=== PATIENT | female | born 1995 | race American Indian/Alaskan Native ===

== ENCOUNTER 2020-03-02 12:17 | Inpatient (IN) | payer OTHER, MEDICAID ==
[2020-03-02] MEDS ORDERED: PROMETHAZINE 25 MG RECT SUPP PR PRN (13:09)
[2020-03-02] MEDS ORDERED: ePHEDrine SULFATE 50 MG/1 ML INJ IV PRN (13:09)
[2020-03-02] MEDS ORDERED: NALOXONE 0.4 MG/1 ML INJ IV PRN (13:09)
[2020-03-02] MEDS ORDERED: NalbUPHINE 10 MG/1 ML INJ IV PRN (13:09)
[2020-03-02] MEDS ORDERED: ONDANSETRON 4 MG/2 ML INJ IV PRN (13:09)
[2020-03-02] MEDS ORDERED: fentaNYL 100 MCG/2 ML INJ IV PRN (13:09)
[2020-03-02] MEDS ORDERED: BUTORPHANOL 2 MG/1 ML INJ IV PRN ×2 (13:09)
[2020-03-02] MEDS ORDERED: MINERAL OIL 30 ML ORAL LIQD PO PRN (13:09)
[2020-03-02] MEDS ORDERED: TERBUTALINE 1 MG/1 ML INJ SUB-Q PRN (13:09)
[2020-03-02] MEDS ORDERED: TERBUTALINE 1 MG/1 ML INJ IVP PRN (13:09)
[2020-03-02] MEDS ORDERED: LACTATED RINGERS 1,000 ML ONE (13:09)
--- NOTE | 2020-03-02 13:21 | History and Physical Report ---
History of Present Illness Date of examination: 03/02/20 Date of admission: 03/02/20 12:17 Chief complaint: Patient here complaining of leaking History of present illness: This is a 24 yo EDC 03/15 at 39 weeks here for leaking. She is patient of [facility] with care since 26 week late due to insurance issues. Past History Past Medical History: no pertinent history Past Surgical History: no surgical history Family/Genetic History: none Social history: single. denies: smoking, alcohol abuse, prescription drug abuse - Obstetrical History Expected Date of Delivery: 03/15/20 Actual Gestation: 38 Week(s) 1 Day(s) : 2 Para: 1 Hx # Term Pregnancies: 0 Number of Pregnancies: 0 Spontaneous Abortions: 0 Induced : 0 Number of Living Children: 1 Medications and Allergies Active Meds: Active Medications Butorphanol Tartrate (Stadol) 1 mg IV Q2H PRN PRN Reason: Labor Pain Butorphanol Tartrate (Stadol) 2 mg IV Q2H PRN PRN Reason: Pain , Severe (7-10) Ephedrine Sulfate (Ephedrine Sulfate) 10 mg IV Q2M PRN PRN Reason: Hypotension Fentanyl (Sublimaze) 100 mcg IV Q2H PRN PRN Reason: Labor Pain Oxytocin/Sodium Chloride (Pitocin/Ns 20 Unit/1000ml Drip) 20 units in 1,000 mls @ 125 mls/hr IV DIRECT ALBERT Oxytocin/Sodium Chloride (Pitocin/Ns 30 Unit/500ml) 30 units in 500 mls @ 1 mls/hr IV TITR ALBERT; Protocol Oxytocin/Sodium Chloride (Pitocin/Ns 30 Unit/500ml) 30 units in 500 mls @ 0 mls/hr IV TITR ALBERT; Protocol Lactated Ringer's (Lactated Ringers) 1,000 mls @ 125 mls/hr IV DIRECT ALBERT Ampicillin Sodium (Ampicillin/Ns 2 Gm/100 Ml) 2 gm in 100 mls @ 100 mls/hr IV ONCE ONE; Protocol Stop: 03/02/20 14:08 Lidocaine (Xylocaine 2%) 20 ml INFILTRATI ONCE ONE Stop: 03/02/20 13:10 Mineral Oil (Mineral Oil) 30 ml PO QHS PRN PRN Reason: Constipation Nalbuphine HCl (Nalbuphine) 10 mg IV Q2H PRN PRN Reason: Pain, Moderate (4-6) Naloxone HCl (Naloxone) 0.1 mg IV Q2MIN PRN PRN Reason: Res Rate </= 8 or 02 SAT < 92% Ondansetron HCl (Zofran) 4 mg IV Q8H PRN PRN Reason: Nausea And Vomiting Promethazine HCl (Phenergan) 25 mg TX Q6H PRN PRN Reason: N/V if unable to take po Terbutaline Sulfate (Brethine) 0.25 mg SUB-Q ONCE PRN PRN Reason: Hyperstimulation/Hypertonicity Terbutaline Sulfate (Brethine) 0.25 mg IVP ONCE PRN PRN Reason: Hyperstimulation/Hypertonicity Review of Systems All systems: negative - Vital Signs Vital signs: Vital Signs Pulse BP 61 130/76 03/02/20 13:12 03/02/20 13:12 Temp Pulse Resp BP Pulse Ox 61 130/76 03/02/20 13:12 03/02/20 13:12 - Physical Exam Breasts: Positive: normal Cardiovascular: Regular rate, Normal S1 Lungs: Positive: Clear to auscultation, Normal air movement Abdomen: Positive: normal appearance, soft, normal bowel sounds. Negative: distention, tenderness, guarding Genitourinary (Female): Positive: normal external genitalia, normal perenium Vagina: Positive: normal moisture Uterus: Positive: normal size, normal contour Anus/Rectum: Positive: normal perianal skin Extremities: Positive: normal Deep Tendon Reflex Grade: Normal +2 - Obstetrical FHR: category 1 Cervical Dilatation: 1 Results All other labs normal. Assessment and Plan A/P IUP 38 weeks GBS unknown PROM admission ivf labs offer epidrural amp for GBSunknown augemtin labor with pitocin expect vaginal delivery
[2020-03-02] MEDS ORDERED: AMPICILLIN/NS 2 GM/100 ML 2 GM/100 ML BAG IV ONE (14:00)
[2020-03-02] MEDS ORDERED: OXYTOCIN DRIP 30 UNITS/500 ML BAG IV SCH ×2 (14:00)
[2020-03-02] MEDS ORDERED: LIDOCAINE (2%) 20 MG/1 ML VIAL 20 ML MDV INFILTRATI ONE (14:00)
[2020-03-02 14:30] LABS: Hematocrit 37.3 % (30.3-42.9); Hemoglobin 12.6 gm/dl (10.1-14.3); Mean Corpuscular HGB Conc 34 % (30-34); Mean Corpuscular Volume 92 fl (79-97); Platelet Count 193 K/mm3 (140-440); Red Blood Count 4.07 M/mm3 (3.65-5.03); Red Cell Distribution Width 13.4 % (13.2-15.2)
--- NOTE | 2020-03-02 16:12 | Ultrasound Report ---
ULTRASOUND OBSTETRIC Indication: well being Findings: There is a single intrauterine . BPD = 9.1 cm = 36 weeks, 6 day(s). Head circumference = 32.9 cm = 37 weeks, 3 day(s). Abdominal circumference = 32 cm = 35 weeks, 6 day(s). Femur length = 6.9 cm = 35 weeks, 1 day(s). Overall estimated sonographic age = 36 weeks, 2 day(s). heart rate is 121 beats per minute. Estimated weight is 2820 grams position is cephalic. movement is present. Placenta is right lateral and grade 2 . Amniotic fluid volume is decreased, with DERIAN measuring 3.4 cm.. Maternal adnexa appear normal. Impression: 1. Single living intrauterine with estimated sonographic age of 36 weeks, 2 day(s). 2. Low amniotic fluid index of 3.4 cm. Signer Name: Tico Rivers MD Signed: 03/02/2020 4:08 PM Workstation Name: [id number]
[2020-03-02] MEDS: miSOPROStol 25 MCG TAB PO PRN ×2 (16:14→20:17)
[2020-03-02] MEDS: LACTATED RINGERS 1,000 ML IV SCH ×4 (16:15→23:10)
[2020-03-02] MEDS ORDERED: DEXMEDETOMIDINE 200 MCG/2 ML VIAL IV ONE (21:22)
--- NOTE | 2020-03-02 21:39 | Anesthesia Consultation ---
Anesthesia Consult and Med Hx Date of service: 03/02/20 - Airway Anesthetic Teeth Evaluation: Good ROM Head & Neck: Adequate Mental/Hyoid Distance: Adequate Mallampati Class: Class II Intubation Access Assessment: Good - Pulmonary Exam CTA: Yes - Cardiac Exam Cardiac Exam: RRR - Pre-Operative Health Status ASA Pre-Surgery Classification: ASA2, Emergency Proposed Anesthetic Plan: Epidural - Pulmonary Hx Asthma: No COPD: No Hx Pneumonia: No - Cardiovascular System Hx Hypertension: No - Central Nervous System Hx Seizures: No Hx Psychiatric Problems: No - Endocrine Hx Renal Disease: No Hx End Stage Renal Disease: No Hx Hypothyroidism: No Hx Hyperthyroidism: No - Hematic Hx Anemia: No Hx Sickle Cell Disease: No - Other Systems Hx Alcohol Use: No
--- NOTE | 2020-03-02 21:40 | Progress Note ---
Labor Epidural - Labor Epidural Start Time: 21:25 Stop Time: 21:28 Performed by:: PATI GARZA Procedure: Patient is requesting a laboring epidural for laboring pain. Patient IDed, H&P reviewed, all questions and concerns were answered, and consent was signed. Timeout was performed at bedside. Patient in sitting position. Sterile prep and drape was performed. 3 ml of 1% lidocaine skin wheal at L 3- L 3. 18-gauge Touhy epidural needle was advanced to loss of resistance with air technique. Negative CSF negative blood. Epidural catheter advanced to 15 centimeters. Negative aspiration negative test dose. Sterile dressing applied. Patient tolerated procedure.
[2020-03-02] MEDS ORDERED: fentaNYL-BUPIV 2 MCG/ML-0.125% 200 MCG/100 ML BAG EPIDURAL SCH (22:00)
[2020-03-03] MEDS: OXYTOCIN 20 UNIT/1000ML DRIP 20 UNITS/1,000 ML BAG IV SCH ×2 (02:48→03:48)
[2020-03-03] MEDS ORDERED: miSOPROStol 200 MCG TAB PR ONE (02:56)
[2020-03-03] MEDS ORDERED: miSOPROStol 200 MCG TAB ONE (02:56)
--- NOTE | 2020-03-03 03:16 | Procedure Note ---
OB Delivery Note - Delivery Date of Delivery: 03/03/20 Surgeon: VALORIE MCKEON Estimated blood loss: 300cc - Vaginal Delivery presentation: vertex Delivery position: OA Intrapartum events: PROM->1hr before delivery Delivery induction: misoprostol Delivery monitor: external FHT, external uterine Route of delivery: Delivery placenta: spontaneous Delivery cord: nuchal cord Delivery laceration: none Anesthesia: epidural Delivery comments: Viable male delivered over intact perineum with loose nuchal easily reduced on perineum. Weight 6 pounds 1 ounce. Apgars8,9. Placenta delivered spontaneously and intact with 3vc. No lacerations. Pt tolerated procedure well. - Infant A at 1 minute: 8 at 5 minutes: 9 Infant Gender: Male
[2020-03-03] MEDS ORDERED: MAGNESIUM HYDROXIDE (MOM) ORAL LIQD UDC PO PRN (06:32)
[2020-03-03] MEDS ORDERED: PROMETHAZINE 25 MG TAB PO PRN (06:32)
[2020-03-03] MEDS ORDERED: diphenhydrAMINE 25 MG CAP PO PRN (06:32)
[2020-03-03] MEDS ORDERED: HYDROcodone/ACETAMINOPHEN 5-325 MG TAB PO PRN (06:32)
[2020-03-03] MEDS ORDERED: WITCH HAZEL/ GLYCERIN PAD TP PRN (06:32)
[2020-03-03] MEDS ORDERED: ACETAMINOPHEN 325 MG TAB PO PRN (06:32)
[2020-03-03] MEDS ORDERED: ONDANSETRON 4 MG/2 ML INJ IV PRN (06:32)
[2020-03-03] MEDS ORDERED: LANOLIN/ZINC/DIMETHICONE (LANSINOH) 7 GM TP PRN (06:32)
[2020-03-03] MEDS ORDERED: KETOROLAC 30 MG/1 ML INJ IV PRN (06:32)
[2020-03-03] MEDS ORDERED: OXYTOCIN 20 UNIT/1000ML DRIP 20 UNITS/1,000 ML BAG IV SCH (06:32)
[2020-03-03] MEDS ORDERED: PROMETHAZINE 25 MG RECT SUPP PR PRN (06:32)
[2020-03-03] MEDS: IBUPROFEN 600 MG TAB PO SCH ×2 (09:50→17:52)
[2020-03-03] MEDS: DOCUSATE SODIUM 100 MG CAP PO SCH ×2 (09:50→22:14)
[2020-03-03] MEDS: PRENATAL VIT27-FE FUMARATE-FOLIC ACID VIT TAB PO SCH (09:50)
--- NOTE | 2020-03-03 16:01 | Post Anesthesia Evaluation ---
- Post Anesthesia Evaluation Patient Participated: Yes Airway Patent: Yes Stable Respiratory Function: Yes Nausea/Vomiting: No Temp > 96.8F: Yes Pain Manageable: Yes Adequeate Hydration: Yes Anesthesia Complications: No Block Receding Appropriately: Yes Patient on Ventilator: No
[2020-03-03 16:46] LABS: Hematocrit 31.5 % (30.3-42.9); Hemoglobin 10.9 gm/dl (10.1-14.3)
[2020-03-04] MEDS ORDERED: TETANUS,DIPH,PERTUSS(ACELL) VACCINE 0.5 ML SYRINGE IM ONE (06:00)
[2020-03-04] MEDS: IBUPROFEN 600 MG TAB PO SCH ×2 (06:17→12:10)
[2020-03-04] MEDS: PRENATAL VIT27-FE FUMARATE-FOLIC ACID VIT TAB PO SCH (12:10)
[2020-03-04] MEDS: DOCUSATE SODIUM 100 MG CAP PO SCH (12:10)
--- NOTE | 2020-03-04 12:11 | Progress Note ---
Assessment and Plan PPD 1 s/p . Doing well. Plan for discharge on today. Subjective - Subjective Date of service: 03/04/20 Interval history: PPD 1 s/p . Patient reports: appetite normal, voiding normally, pain well controlled, ambulating normally [place]: doing well Objective - Vital Signs Latest vital signs: Vital Signs Temp Pulse Resp BP Pulse Ox 03/04/20 07:46 98.2 F 67 16 136/73 98 03/03/20 23:40 98.1 F 64 20 133/68 96 03/03/20 16:03 97.9 F 72 20 141/83 100 Intake and Output 03/03/20 03/04/20 03/04/20 22:59 06:59 14:59 Intake Total 240 120 240 Balance 240 120 240 Intake: Oral 240 120 240 Other: Total, Intake Amount 240 120 240 # Voids Void 1 1 1 - Exam Breasts: Present: deferred Cardiovascular: Present: Regular rate, Normal S1, Normal S2 Lungs: Present: Clear to auscultation, Normal air movement Abdomen: Present: normal appearance, soft, normal bowel sounds Vulva: both: normal Uterus: Present: normal, firm Extremities: Present: normal Deep Tendon Reflex Grade: Normal +2
--- NOTE | 2020-03-04 12:13 | Discharge Summary ---
Providers - Providers Date of Admission: 03/02/20 12:17 Date of discharge: 03/04/20 Attending physician: ALEK GRAF MD Primary care physician: REAL TIME ANALYST Hospitalization Reason for admission: induction of labor, rupture of membranes Delivery: Episiotomy: none Laceration: none Other procedures: none complications: none Discharge diagnosis: IUP at term delivered [place] baby: male Hospital course: unremarkable Condition at discharge: Good Disposition: DC-01 TO HOME OR SELFCARE Plan - Discharge Medications Prescriptions: Ibuprofen [Motrin] 800 mg PO Q8HR PRN #40 tablet PRN Reason: Pain, Moderate (4-6) HYDROcodone/APAP 5-325 [[place] 5/325] 1 each PO Q6HR PRN #15 tablet PRN Reason: Pain - Provider Discharge Summary Additional instructions: [] Smoking cessation referral if applicable(refer to patient education folder for contact #) [] Refer to [facility]'s [facility] Booklet Call your doctor immediately for: * Fever > 100.5 * Heavy vaginal bleeding ( >1 pad per hour) * Severe persistent headache * Shortness of breath * Reddened, hot, painful area to leg or breast * Drainage or odor from incision. * Keep incision clean and dry at all times and follow doctor's instructions regarding bathing/showering - Follow up plan Follow up: PRIMARY CAREMD [Primary Care Provider] - 7 Days
[2020-03-04 14:57] VITALS: BP 148/87
== END 2020-03-04 14:50 | disposition home or self-care (01) | DRG 807 ==
LOC: LD 12:17 → OB 03-03 05:30
PROVIDERS: ADMIT Obstetrics & Gynecology; ATTEND Obstetrics & Gynecology
PROC: 10E0XZZ Delivery of Products of Conception, External Approach (ICD-10-PCS; principal; 2020-03-03)
DX: O80 Encounter for full-term uncomplicated delivery (principal); Z37.0 Single live birth; Z3A.38 38 weeks gestation of pregnancy
CPT/HCPCS: 36415; 76816; 85014; 85018; 85027; 86850; 86900; 86901; 90715; G0378; J2590; J3490; J7120

== ENCOUNTER 2021-06-10 09:37 | Inpatient (IN) | payer OTHER, MEDICAID ==
[2021-06-10] MEDS ORDERED: OXYTOCIN 10 UNIT/1 ML INJ IM PRN (11:52)
[2021-06-10] MEDS ORDERED: LIDOCAINE (2%) 20 MG/1 ML VIAL 20 ML MDV INFILTRATI NR (11:52)
[2021-06-10] MEDS ORDERED: TERBUTALINE 1 MG/1 ML INJ SUB-Q PRN (11:52)
[2021-06-10] MEDS ORDERED: LOPERAMIDE 2 MG CAP PO PRN ×2 (11:52→12:38)
[2021-06-10] MEDS ORDERED: CARBOPROST TROMETHAMINE 250 MCG/1 ML INJ IM PRN ×2 (12:00→12:38)
[2021-06-10] MEDS ORDERED: OXYTOCIN DRIP 30 UNITS/500 ML BAG IV SCH ×2 (12:00)
[2021-06-10] MEDS ORDERED: METHYLERGONOVINE MALEATE 0.2 MG/ML VIAL IM PRN ×2 (12:00→12:38)
[2021-06-10] MEDS ORDERED: ePHEDrine SULFATE 50 MG/1 ML INJ IV PRN ×3 (12:00→17:26)
[2021-06-10] MEDS ORDERED: miSOPROStol 200 MCG TAB PR PRN (12:30)
[2021-06-10] MEDS ORDERED: BUTORPHANOL 2 MG/1 ML INJ IV PRN ×3 (12:38→17:00)
--- NOTE | 2021-06-10 12:57 | History and Physical Report ---
History of Present Illness Date of examination: 06/10/21 Date of admission: 06/10/2021 Chief complaint: My water broke between 2 and 3 this morning History of present illness: Late entry to care at 31 2/7 Weeks; course complicated by Anemia and Vitamin D Deficiency. Past History Past Medical History: no pertinent history Past Surgical History: other (Facial SX (2010)) Family/Genetic History: none Social history: no significant social history, single - Obstetrical History Expected Date of Delivery: 06/16/21 Actual Gestation: 39 Week(s) 1 Day(s) : 3 Para: 2 Hx # Term Pregnancies: 2 Number of Living Children: 2 #1 Infant Gender: Female year: 2,[birth year] Birthweight: 2.637 kg Method of Delivery: Vaginal Gestational age at delivery: 39 Complications: none #2 Gender: Male year: 2,020 Birthweight: 2.75 kg Method of Delivery: Vaginal Gestational age at delivery: 39 Complications: none Medications and Allergies Allergies Allergy/AdvReac Type Severity Reaction Status Date / Time No Known Allergies Allergy Unverified 03/02/20 15:41 Home Medications Medication Instructions Recorded Confirmed Last Taken Type HYDROcodone/APAP 5-325 [[place] 1 each PO Q6HR PRN #15 tablet 03/03/20 Unknown Rx 5/325] Ibuprofen [Motrin] 800 mg PO Q8HR PRN #40 tablet 03/03/20 Unknown Rx Acetaminophen [Acetaminophen 8 650 mg PO Q8H PRN #20 tablet.er 07/17/20 Unknown Rx Hour] Azithromycin [Zithromax Z-CARLITO] 250 mg PO DAILY #6 tablet 07/17/20 Unknown Rx Benzonatate [Tessalon Perles] 100 mg PO Q8HR PRN #12 capsule 07/17/20 Unknown Rx Sulfamethoxazole/Trimethoprim 1 each PO BID #14 tablet 07/17/20 Unknown Rx [Bactrim DS TAB] Active Meds: Active Medications Butorphanol Tartrate (Butorphanol 2 Mg/1 Ml Inj) 2 mg IV Q2H PRN PRN Reason: Pain , Severe (7-10) Carboprost Tromethamine (Carboprost Tromethamine 250 Mcg/1 Ml Inj) 250 mcg IM ONCE PRN PRN Reason: Uterine Bleeding Ephedrine Sulfate (Ephedrine Sulfate 50 Mg/1 Ml Inj) 10 mg IV Q2M PRN PRN Reason: Hypotension Oxytocin/Sodium Chloride (Pitocin/Ns 30 Unit/500ml) 30 units in 500 mls @ 2 mls/hr IV TITR ALBERT; Protocol Lactated Ringer's (Lactated Ringers) 1,000 mls @ 125 mls/hr IV DIRECT ALBERT Oxytocin/Sodium Chloride (Pitocin/Ns 30 Unit/500ml) 30 units in 500 mls @ 40 mls/hr IV TITR ALBERT; Protocol Lidocaine (Lidocaine (2%) 20 Mg/1 Ml Vial 20 Ml Mdv) 20 ml INFILTRATI ONCE NR Stop: 06/10/21 16:00 Loperamide HCl (Loperamide 2 Mg Cap) 2 mg PO ONCE PRN PRN Reason: give with Hemabate Loperamide HCl (Loperamide 2 Mg Cap) 2 mg PO ONCE PRN PRN Reason: give with Hemabate Methylergonovine Maleate (Methylergonovine Maleate 0.2 Mg/Ml Vial) 0.2 mg IM ONCE PRN PRN Reason: Uterine Bleeding Methylergonovine Maleate (Methylergonovine Maleate 0.2 Mg/Ml Vial) 0.2 mg IM ONCE PRN PRN Reason: Uterine Bleeding Mineral Oil (Mineral Oil 30 Ml Oral Liqd) 30 ml PO QHS PRN PRN Reason: Constipation Misoprostol (Misoprostol 200 Mcg Tab) 800 mcg TN ONCE PRN PRN Reason: Uterine Bleeding Stop: 06/11/21 12:29 Oxytocin (Oxytocin 10 Unit/1 Ml Inj) 10 unit IM ONCE PRN PRN Reason: Uterine Bleeding Terbutaline Sulfate (Terbutaline 1 Mg/1 Ml Inj) 0.25 mg SUB-Q ONCE PRN PRN Reason: Hyperstimulation/Hypertonicity Stop: 06/11/21 11:51 Review of Systems All systems: negative - Vital Signs Vital signs: Vital Signs Pulse Pulse Ox 91 H 99 06/10/21 10:17 06/10/21 10:17 Temp Pulse Resp BP Pulse Ox 98.2 F 62 16 121/68 100 06/10/21 10:20 06/10/21 12:37 06/10/21 10:20 06/10/21 12:35 06/10/21 12:37 - Physical Exam Breasts: Positive: normal Cardiovascular: Regular rate Lungs: Positive: Clear to auscultation, Normal air movement Abdomen: Positive: normal appearance, soft, normal bowel sounds Genitourinary (Female): Positive: normal external genitalia, normal perenium Uterus: Positive: enlarged Anus/Rectum: Positive: normal perianal skin - Obstetrical FHR: category 1 Uterine Contraction Monitor Mode: External Cervical Dilatation: 2 (scant amount of clear fluid observed) Cervical Effacement Percentage: 70 station: -3 Uterine Contraction Pattern: Irregular Uterine Tone Measurement Phase: Resting Uterine Contraction Intensity: Mild Results Abnormal lab results 06/10/21 Range/Units Unknown Membranes Rupture Positive A (Negative) All other labs normal. Assessment and Plan A: IUP @ 39 1/7 Weeks Category I Tracing PROM GBS Negative P: Admit to L&D Per Routine Orders Pitocin Induction
[2021-06-10 13:07] LABS: Hematocrit 30.8 % (30.3-42.9); Hemoglobin 10.3 gm/dl (10.1-14.3); Mean Corpuscular HGB Conc 33 % (30-34); Mean Corpuscular Volume 85 fl (79-97); Platelet Count 197 K/mm3 (140-440); Red Blood Count 3.64 M/mm3 (3.65-5.03); Red Cell Distribution Width 14.3 % (13.2-15.2)
[2021-06-10] MEDS: LACTATED RINGERS 1,000 ML IV SCH ×4 (14:08→20:52)
[2021-06-10] MEDS ORDERED: ACETAMINOPHEN 325 MG TAB PO PRN ×2 (16:03→17:00)
[2021-06-10] MEDS ORDERED: fentaNYL 100 MCG/2 ML INJ IV PRN (17:00)
[2021-06-10] MEDS ORDERED: NALOXONE 2 MG/2 ML INJ IV PRN (17:26)
--- NOTE | 2021-06-10 17:26 | Anesthesia Consultation ---
Anesthesia Consult and Med Hx Date of service: 06/10/21 - Airway Anesthetic Teeth Evaluation: Good ROM Head & Neck: Adequate Mental/Hyoid Distance: Adequate Mallampati Class: Class II Intubation Access Assessment: Probably Good - Pulmonary Exam CTA: Yes - Cardiac Exam Cardiac Exam: RRR - Pre-Operative Health Status ASA Pre-Surgery Classification: ASA2 Proposed Anesthetic Plan: Epidural - Pulmonary Hx Asthma: No COPD: No Hx Pneumonia: No - Cardiovascular System Hx Hypertension: No - Central Nervous System Hx Seizures: No Hx Psychiatric Problems: No - Endocrine Hx Renal Disease: No Hx End Stage Renal Disease: No Hx Hypothyroidism: No Hx Hyperthyroidism: No - Hematic Hx Anemia: No Hx Sickle Cell Disease: No - Other Systems Hx Alcohol Use: No
[2021-06-10] MEDS ORDERED: fentaNYL-BUPIV 2 MCG/ML-0.125% 200 MCG/100 ML BAG EPIDURAL SCH (18:00)
--- NOTE | 2021-06-10 18:13 | Progress Note ---
Labor Epidural - Labor Epidural Start Time: 18:03 Stop Time: 18:06 Performed by:: ADAM WALLACE Procedure: Patient is requesting epidural for labor pain. H&P, and labs reviewed. Procedure explained, questions answered, consent obtained. Patient in sitting position with blood pressure cuff and pulse ox on and working. Timeout performed immediately before start of procedure. Sterile chlorahexadine 0.5% prep/drape. 3 mL 1% lidocaine skin wheal at L[3]-L[4]. 18-gauge ConvertMediatead epidural needle advanced to [id number] with saline at 5 cm. 27-gauge spinal needle advanced until clear, free-flowing CSF. Intrathecal dexmedetomidine [5] mcg administered and needle removed. Epidural catheter advanced to 10 cm, negative aspiration for blood and csf, negative test dose 3 ml 1.5% lidocaine with epinephrine. Sterile steri-strips and tegaderm applied, followed by tape reinforcement. Patient tolerated procedure well.
[2021-06-10] MEDS ORDERED: MINERAL OIL 30 ML ORAL LIQD PO PRN (22:00)
[2021-06-11] MEDS ORDERED: PROMETHAZINE 25 MG RECT SUPP PR PRN (00:24)
[2021-06-11] MEDS ORDERED: PROMETHAZINE 25 MG TAB PO PRN (00:24)
[2021-06-11] MEDS ORDERED: WITCH HAZEL/ GLYCERIN PAD TP PRN (00:24)
[2021-06-11] MEDS ORDERED: LANOLIN/ZINC/DIMETHICONE (LANSINOH) 7 GM TP PRN (00:24)
[2021-06-11] MEDS ORDERED: MAGNESIUM HYDROXIDE (MOM) ORAL LIQD UDC PO PRN (00:24)
[2021-06-11] MEDS ORDERED: ONDANSETRON 4 MG/2 ML INJ IV PRN (00:24)
[2021-06-11] MEDS ORDERED: diphenhydrAMINE 25 MG CAP PO PRN (00:24)
[2021-06-11] MEDS ORDERED: ACETAMINOPHEN 325 MG TAB PO PRN (00:24)
--- NOTE | 2021-06-11 00:32 | Procedure Note ---
OB Delivery Note - Delivery Date of Delivery: 06/11/21 Surgeon: NELI MCNAMARA JR Estimated blood loss: 100cc - Vaginal Delivery presentation: vertex Delivery position: OA Intrapartum events: meconium (terminal) Delivery induction: oxytocin Delivery augmentation: pitocin Delivery monitor: external FHT, external uterine Route of delivery: vacuum extraction Indicators for instrumentation: nonreassuring FHR tracing Delivery placenta: spontaneous Episiotomy: none Delivery laceration: 1st degree (periclitoral) Delivery repair: vicryl Anesthesia: epidural Delivery comments: Status post vacuum-assisted vaginal delivery of male at 2356 indicated for nonreassuring heart tones. Weight 3380g. Height 20 inches. Apgars 8/9. Spontaneous delivery of placenta. Fundus firm below the umbilicus after Methergine x1. First-degree periclitoral laceration rendered hemostatic with 3- 0 Vicryl. - Infant A at 1 minute: 8 at 5 minutes: 9 Infant Gender: Male
[2021-06-11] MEDS: IBUPROFEN 600 MG TAB PO SCH ×2 (02:00→18:47)
[2021-06-11] MEDS: oxyCODONE /ACETAMINOPHEN 5-325MG TAB PO PRN (14:26)
[2021-06-11 18:51] LABS: Hematocrit 25.9 % (30.3-42.9); Hemoglobin 8.7 gm/dl (10.1-14.3)
--- NOTE | 2021-06-11 20:01 | Post Anesthesia Evaluation ---
- Post Anesthesia Evaluation Patient Participated: Yes Airway Patent: Yes Stable Respiratory Function: Yes Nausea/Vomiting: No Temp > 96.8F: Yes Pain Manageable: Yes Adequeate Hydration: Yes Anesthesia Complications: No Block Receding Appropriately: Yes
[2021-06-12] MEDS: IBUPROFEN 600 MG TAB PO SCH ×2 (01:56→12:13)
[2021-06-12] MEDS: oxyCODONE /ACETAMINOPHEN 5-325MG TAB PO PRN (08:17)
[2021-06-12] MEDS ORDERED: FERROUS SULFATE 325 MG TAB PO SCH (11:00)
--- NOTE | 2021-06-12 11:48 | Progress Note ---
Assessment and Plan A: PP Day #1 Asymptomatic Anemia +Covid (asymptomatic) P: Follow Routine Orders FeSO4 325mg PO BID Covid precautions Depo Provera 150mg IM x 1 dose prior to discharge Plans Sterilization RTO in 3 Weeks Subjective - Subjective Date of service: 06/12/21 Interval history: Late entry to care at 31 2/7 Weeks; course complicated by Anemia and Vitamin D Deficiency. Patient reports: appetite normal, voiding normally, pain well controlled, flatus, bowel movement, ambulating normally : doing well, bottle feeding Objective - Vital Signs Latest vital signs: Vital Signs Temp Pulse Resp BP BP Pulse Ox 06/12/21 09:18 98.3 F 61 16 114/64 96 06/12/21 01:56 18 06/12/21 01:20 98.0 F 73 18 124/72 98 06/11/21 16:19 98.3 F 86 20 125/76 96 06/11/21 12:45 98.1 F 74 18 126/64 100 Intake and Output 06/11/21 06/12/21 06/12/21 22:59 06:59 14:59 Intake Total 240 480 360 Balance 240 480 360 Intake: Oral 240 480 120 Intake, Free Water 240 Other: Total, Intake Amount 240 240 120 # Voids Void 1 1 1 - Exam Breasts: Present: normal Cardiovascular: Present: Regular rate Lungs: Present: Clear to auscultation, Normal air movement Abdomen: Present: normal appearance, soft, normal bowel sounds Uterus: Present: normal, firm, fundal height below umbilicus Extremities: Present: normal - Labs Labs: Abnormal lab results 06/11/21 Range/Units 18:03 Hgb 8.7 L (10.1-14.3) gm/dl Hct 25.9 L (30.3-42.9) %
--- NOTE | 2021-06-12 11:50 | Discharge Summary ---
Providers - Providers Date of Admission: 06/10/21 16:47 Date of discharge: 06/12/21 Attending physician: PRADEEP RANGEL MD Primary care physician: PRADEEP RANGEL MD Hospitalization Reason for admission: rupture of membranes Delivery: vacuum extraction Episiotomy: none Laceration: 1st degree Other procedures: none complications: none Discharge diagnosis: IUP at term delivered [place] baby: male Condition at discharge: Good Disposition: DC-01 TO HOME OR SELFCARE Plan - Provider Discharge Summary Activity: routine, no sex for 6 weeks, no heavy lifting 4 weeks, no strenuous exercise Diet: routine Instructions: routine Additional instructions: [] Smoking cessation referral if applicable(refer to patient education folder for contact #) [] Refer to [facility] Booklet Call your doctor immediately for: * Fever > 100.5 * Heavy vaginal bleeding ( >1 pad per hour) * Severe persistent headache * Shortness of breath * Reddened, hot, painful area to leg or breast * Drainage or odor from incision. * Keep incision clean and dry at all times and follow doctor's instructions regarding bathing/showering - Follow up plan Follow up: PRADEEP RANGEL MD [Primary Care Provider] - 07/03/21
[2021-06-12] MEDS ORDERED: medroxyPROGESTERone ACETATE 150 MG/ML SYRINGE IM SCH (12:00)
[2021-06-12 16:01] VITALS: BP 125/78
== END 2021-06-12 16:16 | disposition home or self-care (01) | DRG 806 ==
LOC: TRG 09:37 → APU 09:41 → LD 13:42 → TRG 16:47 → OB 06-11 04:17
PROC: 10D07Z6 Extraction of Products of Conception, Vacuum, Via Natural or Artificial Opening (ICD-10-PCS; principal; 2021-06-10)
PROC: 0HQ9XZZ Repair Perineum Skin, External Approach (ICD-10-PCS; 2021-06-10)
PROC: 3E033VJ Introduction of Other Hormone into Peripheral Vein, Percutaneous Approach (ICD-10-PCS; 2021-06-10)
PROC: 3E0R3BZ Introduction of Anesthetic Agent into Spinal Canal, Percutaneous Approach (ICD-10-PCS; 2021-06-10)
PROC: 00HU33Z Insertion of Infusion Device into Spinal Canal, Percutaneous Approach (ICD-10-PCS; 2021-06-10)
DX: O42.92 Full-term premature rupture of membranes, unspecified as to length of time between rupture and onset of labor (principal); D62 Acute posthemorrhagic anemia; Z37.0 Single live birth; Z3A.39 39 weeks gestation of pregnancy; O77.0 Labor and delivery complicated by meconium in amniotic fluid; O70.0 First degree perineal laceration during delivery; O99.02 Anemia complicating childbirth
CPT/HCPCS: 36415; 84112; 85014; 85018; 85027; 86850; 86900; 86901; G0378; J1050; J2590; J7120